=== PATIENT | female | born 1940 | race Caucasian/White ===

== ENCOUNTER 2022-07-16 17:47 | Outpatient (CLI) | payer MEDICARE | END 2022-07-16 17:48 | disposition home or self-care (01) | LOC: BURRAD 17:47 | PROVIDERS: ATTEND Registered Nurse Community Health | DX: M25.531 Pain in right wrist (principal); M18.12 Unilateral primary osteoarthritis of first carpometacarpal joint, left hand; M85.88 Other specified disorders of bone density and structure, other site ==